=== PATIENT | female | born 1935 | race Caucasian/White ===

== ENCOUNTER 2017-11-14 18:36 | Emergency (ER) | payer MEDICARE ==
--- NOTE | 2017-11-14 19:02 | RAD ---
CHEST PA AND LATERAL: HISTORY: An 82-year-old female with a history of a cold for two weeks. Cough and runny nose. COMPARISON: 01/15/2014 FINDINGS: Heart size is normal. Lungs are clear. No pneumonia, edema, pleural effusion, or other acute proces s. IMPRESSION: 1. No acute intrathoracic disease. 2. No evidence for pneumonia. POS: [facility]
== END 2017-11-14 19:57 | disposition home or self-care (01) ==
LOC: SCSER 18:36
DX: J20.9 Acute bronchitis, unspecified (principal); I10 Essential (primary) hypertension; E11.9 Type 2 diabetes mellitus without complications; Z79.899 Other long term (current) drug therapy
CPT/HCPCS: 71046

== ENCOUNTER 2017-12-21 13:08 | Outpatient (CLI) | payer MEDICARE | END 2017-12-21 13:09 | disposition home or self-care (01) | LOC: MWLC DTY 13:08 | PROVIDERS: ATTEND Family Medicine | DX: E11.9 Type 2 diabetes mellitus without complications (principal); I10 Essential (primary) hypertension | CPT/HCPCS: 97802 ==

== ENCOUNTER 2018-08-08 07:25 | Outpatient (CLI) | payer MEDICARE ==
[2018-08-08 07:53] LABS: ALT (SGPT) 29 U/L (8-55); AST (SGOT) 21 U/L (5-34); Albumin 4.2 g/dL (3.4-4.8); Alkaline Phosphatase 41 U/L (40-150); Anion Gap 13 mmol/L (10-20); BUN (Urea Nitrogen) 21 mg/dL (9.8-20.1); Bilirubin, Total 0.5 mg/dL (0.2-1.2); Calc. Creatinine Clearance 0 mL/min (70-130); Calcium 9.7 mg/dL (7.8-10.44); Carbon Dioxide 27 mmol/L (23-31); Cardiac Risk 3.6 (Less than 4.5); Chloride 105 mmol/L (98-107); Cholesterol 175 mg/dl (< 200 Desired); Estimated GFR-MDRD 57; Globulin 2.7 g/dL (2.4-3.5); Glucose 176 mg/dL (83-110); HDL Cholesterol 49 mg/dL (>60 Neg Risk); LDL Cholesterol, Calculated 107 mg/dL; Protein, Total 6.9 g/dL (6.0-8.3); Sodium 141 mmol/L (136-145); Triglycerides 96 mg/dL (Less than 150)
[2018-08-08 10:35] LABS: Hemoglobin A1c 6.5 % (4.0-6.0)
[2018-08-08 12:31] LABS: Creatinine, Urine 109.27 mg/dL (47-110); Microalbumin/Creat Ratio 9.2 mg/g (Less than 30)
== END 2018-08-08 07:26 ==
LOC: SCSLAB 07:25
PROVIDERS: ATTEND Family Medicine
DX: E78.00 Pure hypercholesterolemia, unspecified (principal); I10 Essential (primary) hypertension; E11.9 Type 2 diabetes mellitus without complications
CPT/HCPCS: 36415; 80053; 80061; 82043; 83036

== ENCOUNTER 2019-03-15 15:32 | Outpatient (CLI) | payer MEDICARE ==
[2019-03-15 16:30] LABS: #Basophils 0.1 thou/uL (0.0-0.2); #Eosinphils 0.3 thou/uL (0.0-0.7); #Lymphocytes 1.7 thou/uL (1.20-3.40); #Monocytes 0.6 thou/uL (0.11-0.59); #Neutrophils 3.4 thou/uL (1.40-6.50); %Basophils 0.9 % (0.0-1.0); %Eosinophils 4.7 % (0.0-10.0); %Monocytes 9.4 % (0.0-10.0); Mean Corpuscular HGB CONC 33.9 g/dL (32.0-36.0); Mean Corpuscular Hemoglobin 32.3 pg (27.0-31.0); Mean Corpuscular Volume 95.3 fL (78.0-98.0); Mean Platelet Volume 7.4 fL (7.4-10.4); Platelet Count 248 thou/uL (130-400); RBC Distribution Width 12.5 % (11.5-14.5); Red Blood Cell (RBC) Count 4.03 mill/uL (4.20-5.40)
[2019-03-15 16:51] LABS: Anion Gap 13 mmol/L (10-20); BUN (Urea Nitrogen) 24 mg/dL (9.8-20.1); Calc. Creatinine Clearance 0 mL/min (70-130); Calcium 9.6 mg/dL (7.8-10.44); Carbon Dioxide 24 mmol/L (23-31); Chloride 103 mmol/L (98-107); Estimated GFR-MDRD 46; Glucose 91 mg/dL (83-110); Potassium 4.2 mmol/L (3.5-5.1); Sodium 136 mmol/L (136-145)
--- NOTE | 2019-03-16 17:31 | EKG ---
Test Reason : Blood Pressure : / mmHG Vent. Rate : 073 BPM Atrial Rate : 073 BPM P-R Int : 230 ms QRS Dur : 070 ms QT Int : 418 ms P-R-T Axes : 075 070 067 degrees QTc Int : 460 ms Sinus rhythm with 1st degree A-V block Low voltage QRS Cannot rule out Anterior infarct Abnormal ECG Confirmed by JUAN DIAZ ([id number]) on 03/16/2019 5:31:22 PM Referred By: ROCKY Confirmed By:JUAN DIAZ
== END 2019-03-15 15:33 | disposition home or self-care (01) ==
LOC: LABBT 15:32
PROVIDERS: ATTEND Surgery
DX: Z01.818 Encounter for other preprocedural examination (principal); K40.40 Unilateral inguinal hernia, with gangrene, not specified as recurrent
CPT/HCPCS: 80048; 85025; 93005; 93010

== ENCOUNTER 2019-03-23 06:13 | Day surgery (SDC) | payer MEDICARE ==
[2019-03-15 15:37] VITALS: BMI 22.8
[2019-03-23] MEDS ORDERED: Bupivacaine/Epinephrine 0.25% 30 ML VIAL ONE (08:44)
[2019-03-23] MEDS ORDERED: Fentanyl 100 MCG/2 ML VIAL ONE ×3 (09:50→11:52)
[2019-03-23] MEDS ORDERED: Meperidine HCl/PF 25 MG/ML VIAL ONE (11:29)
--- NOTE | 2019-03-23 18:23 | OP ---
DATE OF PROCEDURE: 03/23/2019 PREOPERATIVE DIAGNOSIS: Left inguinal hernia. POSTOPERATIVE DIAGNOSIS: Left inguinal hernia. PROCEDURE PERFORMED: Da Jose laparoscopic left inguinal hernia repair with mesh. ANESTHESIA: General. ESTIMATED BLOOD LOSS: Minimal. COMPLICATIONS: None. SPECIMEN: None. FINDINGS: Left inguinal hernia. DESCRIPTION OF PROCEDURE: The patient was taken to the operating room and laid supine on the operating room table. After general anesthetic was obtained, a Ramirez was placed. The abdomen was prepped and draped in a sterile fashion. A curved incision was made above the umbilicus. A cautery was used to dissect down to and score the fascia. Abdominal cavity was entered bluntly using a Suzanne clamp. An 11-mm balloon trocar was placed. High-flow pneumoperitoneum was obtained. There was a left inguinal hernia. There was no right inguinal hernia. Left and right abdominal 8 mm robot trocars were placed. All ports were docked to the robot. Surgeon goes to the console. The peritoneum was taken down in the left groin exposing the left indirect hernia. The preperitoneal space was fully dissected to the pubic tubercle medially and to the anterior superior iliac crest laterally. The round ligament was cut and cauterized. The 3DMax large mesh was brought into the sterile field. It was placed in the preperitoneal space to cover the direct, indirect, and femoral areas. It was sewn with Vicryl to the pubic tubercle medially and to the posterior fascia laterally. There was no bleeding. The perineum was reapproximated using 3-0 Stratafix. All port sites were infiltrated using local anesthetic. All ports were removed under camera visualization. Pneumoperitoneum was let down. PDS used to close the fascial defect above the umbilicus. All incisions were irrigated and closed using 4-0 Monocryl and Dermabond. The patient was sent to Recovery in stable condition. All instrument counts, needle counts, and lap counts were correct. Job ID: [id number]
== END 2019-03-23 14:44 | disposition home or self-care (01) ==
LOC: SDC 06:13
PROVIDERS: ATTEND Surgery
PROC: 0YU64JZ Supplement Left Inguinal Region with Synthetic Substitute, Percutaneous Endoscopic Approach (ICD-10-PCS; principal; 2019-03-23)
DX: K40.90 Unilateral inguinal hernia, without obstruction or gangrene, not specified as recurrent (principal); E11.9 Type 2 diabetes mellitus without complications; I10 Essential (primary) hypertension; Z79.82 Long term (current) use of aspirin; Z79.899 Other long term (current) drug therapy; Z88.1 Allergy status to other antibiotic agents; Z88.8 Allergy status to other drugs, medicaments and biological substances
CPT/HCPCS: 49650; C1781; J0690; J2175; J3010

== ENCOUNTER 2019-12-21 13:26 | Outpatient (CLI) | payer MEDICARE ==
--- NOTE | 2019-12-21 16:23 | MMO ---
Bilateral MAMMO Bilat Screen [facility]. CLINICAL HISTORY: Patient is 84 years old and is seen for screening. The patient has the following family history of breast cancer: 2 aunts, malignant (generic) and cousin female, malignant (generic). The patient has a history of malignant (generic) in the left breast at age 68. 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 VIEWS: The views performed were: bilateral craniocaudal with tomosynthesis and bilateral mediolateral oblique with tomosynthesis. FILMS COMPARED: The present examination has been compared to prior imaging studies performed at [facility] on 01/05/2016, and at [facility] on 12/31/2014, 10/08/2016 and 02/28/2018. This study has been interpreted with the assistance of computer-aided detection. MAMMOGRAM FINDINGS: There are scattered fibroglandular densities. Finding 1: There are stable benign appearing calcifications seen in both breasts. Finding 2: There is a stable post-surgical scar seen in the left breast. There are no suspicious masses, suspicious calcifications, or new areas of architectural distortion. IMPRESSION: THERE IS NO MAMMOGRAPHIC EVIDENCE OF MALIGNANCY. A ROUTINE FOLLOW-UP MAMMOGRAM IN 1 YEAR IS RECOMMENDED. THE RESULTS OF THIS EXAM WERE SENT TO THE PATIENT. ACR BI-RADS Category 2 - Benign finding MAMMOGRAPHY NOTE: 1. A negative mammogram report should not delay a biopsy if a dominant of clinically suspicious mass is present. 2. Approximately 10% to 15% of breast cancers are not detected by mammography. 3. Adenosis and dense breasts may obscure an underlying neoplasm. Reported by: FERNANDA QUINN MD Electonically Signed: [id number]
== END 2019-12-21 13:27 | disposition home or self-care (01) ==
LOC: BICMAMMO 13:26
PROVIDERS: ATTEND Family Medicine
DX: Z12.31 Encounter for screening mammogram for malignant neoplasm of breast (principal); Z80.3 Family history of malignant neoplasm of breast; Z85.3 Personal history of malignant neoplasm of breast; Z98.890 Other specified postprocedural states
CPT/HCPCS: 77063; 77067